=== PATIENT | male | born 1960 | race Caucasian/White ===

== ENCOUNTER 2024-12-22 19:24 | Emergency (ER) | payer MEDICARE, OTHER, SELFPAY ==
[2024-12-22] VITALS (24 sets, daily range): BP systolic 126–159; BP diastolic 45–81; PULSE 61; TEMP 37.2; O2SAT 94–98; BMI 26.5
--- NOTE | 2024-12-22 21:03 | CT_ITS ---
The [address] [address] Patient Name: ANA MARIA LECHUGA MRN: [id number] date: 1960 Sex: M Assigned Patient Location: ED.MAIN Current Patient Location: ED.MAIN Accession/Order Number: [id number] Exam Date: 12/22/2024 21:33 Report Date: 12/22/2024 21:45 At the request of: MONET SINHA MD Procedure: CT abdomen pelvis wo con CT abdomen pelvis wo con 12/22/2024 9:26 PM SIGNS AND SYMPTOMS: right flank pain TECHNIQUE: Multidetector ct axial images of the abdomen and pelvis were obtained without IV contrast. Multiplanar reformats were performed and reviewed to further define anatomy and possible pathology. CT was performed with one or more of the following dose reduction techniques: Automated exposure control, adjustment of the mA and/or kV according to patient size, or use of iterative reconstruction technique. COMPARISON: None. FINDINGS: Lower Chest: Calcified left basilar pleural plaques are noted with pleural thickening and a small left-sided pleural effusion. ABDOMEN: Liver: Within normal limits. Bile Ducts: Normal caliber. Gallbladder: No calcified gallstones. Normal caliber wall. Pancreas: Within normal limits. Spleen: Within normal limits. Adrenals: Within normal limits. Kidneys: There is a simple cyst in the left renal cortex requiring no further follow-up. Nonobstructing renal stones are present bilaterally measuring up to 7 mm in greatest dimension on the right and 2 mm in greatest dimension on the left. There is no hydronephrosis. Pelvis: Reproductive Organs: No pelvic masses. Ureters: Within normal limits. Bladder: Within normal limits. Bowel: Anastomosis is noted in the sigmoid colon suggesting partial colectomy. There is no bowel junction. There is a normal appendix in the right lower quadrant. Mesenteric Lymph Nodes: No enlarged mesenteric lymph nodes. Peritoneum: No ascites or free air, no fluid collection. Vessels: Atherosclerotic changes are noted in the abdominal aorta. Severe atherosclerotic changes noted in the aortic bifurcation and proximal common iliac arteries are either occluded or severely stenosing the lumen. Retroperitoneum: Within normal limits. Abdominal Wall: Within normal limits. Bones: Degenerative changes are noted in the thoracolumbar spine and sacroiliac joints. There is total right hip arthroplasty hardware. Findings are consistent with a vascular process of the left femoral head. CT/CT abdomen pelvis wo con IMPRESSION: No bowel obstruction or obstructive uropathy. Severe atherosclerotic changes noted in the aortic bifurcation and proximal common iliac arteries are either occluded or severely stenosing the lumen. Nonobstructing renal stones are present bilaterally measuring up to 7 mm in greatest dimension on the right and 2 mm in greatest dimension on the left. Impression dictated by: Clinton Costa M.D. 12/22/2024 9:45 PM Dictation Location: [place] [address] Electronically authenticated by: [id number] Y Date: 12/22/2024 21:45
--- NOTE | 2024-12-22 21:04 | ED_ITS ---
HPI HPI - General Adult General Chief complaint: Back Pain/Injury Stated complaint: Flank Pain Time Seen by Provider: 12/22/24 20:58 History of Present Illness HPI narrative: patient states he was informed a few months back he has kidney stones. He did not have any symptoms or concern at the time. Yesterday felt like someone punched him right flank. Today flank is still sore. No fever or nausea. So far pain is tolerable. No dysuria or obvious hematuria Related Data Allergies Allergy/AdvReac Type Severity Reaction Status Date / Time Penicillins Allergy Mild hive Verified 12/22/24 20:56 Review of Systems ROS Status of ROS 10 or more systems reviewed and unremark able except as noted in history and below PFSH PFSH Social History Little interest or pleasure in doing things: not at all Feeling down, depressed, or hopeless: not at all Exam Constitutional Vital Signs, click to edit/add: Last Vital Signs Temp 98.9 F 12/22/24 21:12 Pulse 61 12/22/24 21:12 Resp 18 12/22/24 21:12 BP 159/79 H 12/22/24 23:30 Pulse Ox 97 12/22/24 23:40 O2 Del Method Room Air 12/22/24 21:12 Common normals: no apparent distress, average body habitus, oriented x3, no limitations, healthy appearing, alert and well nourished [facility] Common normals: normocephalic and head/scalp atraumatic Eye Common normals: EOMs intact bilaterally and conjunctivae normal Respiratory Common normals: normal respiratory effort, no retractions, no use of accessory muscles and clear to auscultation bilaterally Cardio Common normals: regular rate, regular rhythm, S1 normal heart sound and S2 normal heart sound GI Common normals: Normal to inspection, nondistended, normoactive bowel sounds present Other: right CVA and flank tenderness. No guard Extremity Common normals: normal to inspection and full ROM Neuro Common normals: oriented x3, CN's II-XII intact bilaterally, moves all extremities, no focal motor deficits and no sensory deficits noted Psych Appearance: grossly normal Course Vital Signs Vital signs: Vital Signs Pulse Oximetry 97 12/22/24 20:58 Temperature 98.9 F 12/22/24 21:12 Pulse Rate 61 12/22/24 21:12 Respiratory Rate 18 12/22/24 21:12 Blood Pressure 159/79 H 12/22/24 23:30 Pulse Oximetry 97 12/22/24 23:40 Oxygen Delivery Method Room Air 12/22/24 21:12 Medical Decision Making MDM Narrative Medical decision making narrative: patient with past history of kidney stones. presents with right flank pain concerned he may have kidney stone. CT without evidence of obstructing stone but does demonstrate severe arthrosclerosis of his common iliac vessels. Patient re interviewed and admits to occ numbness and pain of his lower extremities. No complaint of that this evening. He is advised of this finding and the need to follow up with a vascular surgeon. His CBC and BMP are unremarkable. UA pending. UA returns without sign of infection. Patient informed of the above. also advised of the need to follow up with a vascular surgeon regarding CT findings it remains unclear why he has flank pain but I do not feel it is related to have atherosclerotic arterial vascular disease Lab Data Labs: Lab Results 12/22/24 12/22/24 Range/Units 21:35 23:53 WBC 8.4 (4.0-11.0) 10^3/uL RBC 4.53 L (4.70-6.10) 10^6/uL Hgb 14.3 (14.0-18.0) g/dL Hct 40.7 L (42.0-54.0) % MCV 89.8 (80.0-94.0) fL MCH 31.6 (25.9-34.0) pg MCHC 35.1 (29.9-35.2) g/dL RDW 12.7 (11.0-15.0) % Plt Count 152 (150-450) 10^3/uL MPV 10.7 (9.5-13.5) fL Seg Neuts % (Manual) 72.0 (43.0-75.0) Lymphocytes % (Manual) 9.0 L (20.5-60.0) % Monocytes % (Manual) 19.0 H (1.7-12.0) % Eosinophils % (Manual) 0.0 L (0.9-7.0) % Basophils % (Manual) 0.0 L (0.2-2.0) % Neutrophils # (Manual) 6.04 (1.4-6.5) 10^3/uL Lymphocytes # (Manual) 0.75 L (1.20-3.80) 10^3/uL Monocytes # (Manual) 1.59 H (0.30-0.80) 10^3/uL Eosinophils # (Manual) 0.00 (0.00-0.70) 10^3/uL Basophils # (Manual) 0.00 (0.00-0.10) 10^3/uL Sodium 135 L (136-145) mmol/L Potassium 3.3 L (3.5-5.1) mmol/L Chloride 98 (98-107) mmol/L Carbon Dioxide 25.8 (21.0-32.0) mmol/L Anion Gap 14.5 BUN 13.0 (7.0-18.0) mg/dL Creatinine 0.71 (0.70-1.30) mg/dL Est GFR ( Amer) >60 (>=60 mL/min/1.73m^2) Est GFR (Non-Af Amer) >60 (>=60 mL/min/1.73m^2) BUN/Creatinine Ratio 18.3 Glucose 94 (74-106) mg/dL Lactate 1.1 (0.4-2.0) mmol/L Calcium 8.7 (8.5-10.1) mg/dL Total Bilirubin 0.7 (0.2-1.0) mg/dL AST 14 L (15-37) U/L ALT 11 L (16-63) U/L Alkaline Phosphatase 67 (46-116) U/L Total Protein 6.6 (6.4-8.2) g/dL Albumin 3.1 L (3.4-5.0) g/dL Globulin 3.5 g/dL Albumin/Globulin Ratio 0.9 Urine Color Yellow (YELLOW) Urine Clarity Clear (CLEAR) Urine pH 6.0 (5.0-9.0) Ur Specific [place] 1.010 (1.005-1.025) Urine Protein Negative (NEG/TRACE) mg/dL Urine Glucose (UA) Negative (NEGATIVE) mg/dL Urine Ketones 40 A (NEGATIVE) mg/dL Urine Occult Blood Negative (NEGATIVE) Urine Nitrite Negative (NEGATIVE) Urine Bilirubin Negative (NEGATIVE) Urine Urobilinogen 1.0 (0.2-1.0) EU/dL Ur Leukocyte Esterase Negative (NEGATIVE) Urine RBC 2-5 A (0-2) #/HPF Urine WBC 0-2 A (NONE SEEN) #/HPF Ur Squamous Epith Cells Rare (NONE/RARE) #/LPF Urine Crystals None seen (None Seen) #/HPF Urine Bacteria Trace A (NONE SEEN) #/HPF Urine Casts None seen (NONE SEEN) #/LPF Urine Mucus Small A (NONE SEEN) Imaging Data Abdominal x-ray: Radiologist's impression: ITS Impressions Abdomen/Pelvis CT 12/22/24 21:03 IMPRESSION: No bowel obstruction or obstructive uropathy. Severe atherosclerotic changes noted in the aortic bifurcation and proximal common iliac arteries are either occluded or severely stenosing the lumen. Nonobstructing renal stones are present bilaterally measuring up to 7 mm in greatest dimension on the right and 2 mm in greatest dimension on the left. Impression dictated by: Clinton Costa M.D. 12/22/2024 9:45 PM Dictation Location: [place] [address] Electronically authenticated by: [id number] Y Date: 12/22/2024 21:45 Discharge Plan Discharge Chief Complaint: Back Pain/Injury Clinical Impression: Acute right flank pain, Atherosclerotic peripheral vascular disease Patient Disposition: Home, Self-Care Print Language: Yi Instructions: Peripheral Vascular Disease (ED), Flank Pain (ED) Additional Instructions: follow up with your doctor for recheck of your flank pain. Follow up with Dr Mckeon regarding arterial disease discussed Referrals: Physician,Non-Staff, [Primary Care Provider] - 1 week
[2024-12-22 21:44] LABS: Hematocrit 40.7 % (42.0-54.0); Hemoglobin 14.3 g/dL (14.0-18.0); Mean Corpuscular HGB Conc 35.1 g/dL (29.9-35.2); Mean Corpuscular Hemoglobin 31.6 pg (25.9-34.0); Mean Corpuscular Volume 89.8 fL (80.0-94.0); Mean Platelet Volume 10.7 fL (9.5-13.5); Platelet Count 152 10^3/uL (150-450); Red Blood Count 4.53 10^6/uL (4.70-6.10); Red Cell Distribution Width 12.7 % (11.0-15.0); White Blood Count 8.4 10^3/uL (4.0-11.0)
[2024-12-22] MEDS: 0.9 % SODIUM CHLORIDE 1,000 ML 999 ML IV (21:49)
[2024-12-22 22:05] LABS: Alanine Aminotransferase 11 U/L (16-63); Albumin Globulin Ratio 0.9; Albumin Level 3.1 g/dL (3.4-5.0); Alkaline Phosphatase 67 U/L (46-116); Anion Gap 14.5; Aspartate Amino Transferase 14 U/L (15-37); BUN Creatinine Ratio 18.3; Bilirubin Total 0.7 mg/dL (0.2-1.0); Calcium 8.7 mg/dL (8.5-10.1); Carbon Dioxide 25.8 mmol/L (21.0-32.0); Chloride 98 mmol/L (98-107); Estimated GFR (African America >60 (>=60 mL/min/1.73m^2); Estimated GFR (Non-African Ame >60 (>=60 mL/min/1.73m^2); Globulin 3.5 g/dL; Glucose 94 mg/dL (74-106); Potassium 3.3 mmol/L (3.5-5.1); Sodium 135 mmol/L (136-145); Total Protein 6.6 g/dL (6.4-8.2)
[2024-12-22 22:07] LABS: Lactate/Lactic Acid 1.1 mmol/L (0.4-2.0)
[2024-12-22 22:10] LABS: Segmented Neut Absolute Manual 6.04 10^3/uL (1.4-6.5)
[2024-12-22 22:11] LABS: Lymphocytes Absolute Manual 0.75 10^3/uL (1.20-3.80); Monocytes Absolute Manual 1.59 10^3/uL (0.30-0.80)
[2024-12-22] MEDS: POTASSIUM CHLORIDE 10 MEQ ER TABLET 40 MEQ PO (22:59)
[2024-12-23] VITALS (9 sets, daily range): BP systolic 129–161; BP diastolic 77–79; PULSE 63; TEMP 36.9; O2SAT 96–97
[2024-12-23 00:11] LABS: Bilirubin Urine NEGATIVE (NEGATIVE); Blood Urine NEGATIVE (NEGATIVE); Clarity Urine CLEAR (CLEAR); Color Urine YELLOW (YELLOW); Glucose Urine UA NEGATIVE (NEGATIVE); Ketones Urine 40 mg/dL (NEGATIVE); Leukocyte Esterase Urine NEGATIVE (NEGATIVE); Nitrite Urine NEGATIVE (NEGATIVE); Protein Urine NEGATIVE (NEG/TRACE)
[2024-12-23 00:27] LABS: Bacteria Urine TRACE #/HPF (NONE SEEN); Cast Seen? NONE SEEN #/LPF (NONE SEEN); Crystals Seen? None Seen #/HPF (None Seen); Mucus Urine SMALL (NONE SEEN); Squamous Epithelial Cell Urine RARE #/LPF (NONE/RARE); WBC Urine 0-2 #/HPF (NONE SEEN)
[2024-12-23] MEDS: ORPHENADRINE CITRATE 100 MG TABLET.ER PO (01:28)
--- NOTE | 2024-12-23 01:40 | PC.NURSE ---
i gave this patient verbal and written discharge orders along with 1 Rx and 1 take home medication. this patient voices yes to understanding these. at time of discharge this patient voices no concerns, needs and shows no signs of distress
== END 2024-12-23 01:42 | disposition home or self-care (01) ==
PROVIDERS: Emergency Provider Internal Medicine
DX: R10.31 Right lower quadrant pain (principal); I70.203 Unspecified atherosclerosis of native arteries of extremities, bilateral legs; N20.0 Calculus of kidney
CPT/HCPCS: 36415; 74176; 80053; 81001; 83605; 85007; 85027; 99285